=== PATIENT | male | born 1960 | race Two or more races ===

== ENCOUNTER 2017-09-26 14:54 | Emergency (ER) | payer SELFPAY | END 2017-09-26 17:50 | disposition other institution (70) | LOC: D.ER 14:54 | DX: S06.5X9A Traumatic subdural hemorrhage with loss of consciousness of unspecified duration, initial encounter (principal); X58.XXXA Exposure to other specified factors, initial encounter; Y93.89 Activity, other specified; Y92.019 Unspecified place in single-family (private) house as the place of occurrence of the external cause; G40.909 Epilepsy, unspecified, not intractable, without status epilepticus; I10 Essential (primary) hypertension ==

== ENCOUNTER 2020-03-01 17:05 | Inpatient (IN) | payer OTHER ==
[~2020-03-01] VITALS: Ht 165.1 cm; Wt 50.5 kg
[~2020-03-01 17:05] MED LIST: CHLORASEPTIC S180 ML MM; DUONEB 2.5-0.5 M3 ML UPD; MAG-OXIDE400 MG PO; NORCO 5/325 TAB1 TA1 PO; SYNTHROID75 MCG PO; TYLENOL 325 MG325 MG PO; TYLENOL650 MG RC; ZITHROMAX250 MG PO
[2020-03-01 17:31] LABS: HEMATOCRIT 32.1 % (42.0-54.0); HEMOGLOBIN 11.1 g/dL (13.5-17.5); MCH 33.9 pg (26.0-34.0); MCHC 34.6 g/dL (31.0-37.0); MCV 98.2 fL (80.0-100.0); MEAN PLATELET VOLUME 9.8 fL (7.4-10.4); PLATELET COUNT 83 10x3/uL (130-400); RBC 3.27 10x6/uL (4.20-6.10); RDW 16.2 % (11.5-14.5); WBC 4.4 10x3/uL (4.8-10.8)
[2020-03-01 17:40] LABS: APTT 30.1 SECONDS (22.8-39.4); INR 1.16 (0.85-1.17); PROTIME 14.8 SECONDS (11.6-15.0)
[2020-03-01 17:41] LABS: CALC OSMOLALITY 276 mosm/kg (275-300); CALCIUM 8.8 mg/dL (8.5-10.1); CARBON DIOXIDE 25.6 mmol/L (21.0-32.0); CHLORIDE - SERUM 103 mmol/L (98-107); CREATININE - SERUM 0.8 mg/dL (0.6-1.3); GLUCOSE 108 mg/dL (74-106); POTASSIUM - SERUM 3.4 mmol/L (3.5-5.1); SODIUM 140 mmol/L (136-145); UREA NITROGEN 4 mg/dL (7-18); eGFR NON AFRICAN AMERICAN > 90 mL/min (90-120)
[2020-03-01 17:53] LABS: ALBUMIN 3.8 g/dL (3.4-5.0); ALKALINE PHOSPHATASE 75 U/L (30-120); ALT (SGPT) 63 U/L (10-68); BILIRUBIN - TOTAL 0.86 mg/dL (0.2-1.3); PROTEIN - SERUM 7.9 g/dL (6.4-8.2)
[2020-03-01 18:14] LABS: EOSINOPHILS 3 % (0-7); LYMPHOCYTES 72 % (15-50); MONOCYTES 1 % (2-11); NEUTROPHILS 24 % (40-80); PLATELET ESTIMATE DECREASED
[2020-03-01 18:17] LABS: BILIRUBIN NEGATIVE (NEGATIVE); GLUCOSE NEGATIVE (NEGATIVE); KETONE NEGATIVE (NEGATIVE); NITRITE NEGATIVE (NEGATIVE); UROBILINOGEN NORMAL (NORMAL)
--- NOTE | 2020-03-01 18:17 | NUR ---
NV TRAUMA BAND NUMBER [id number]
--- NOTE | 2020-03-01 18:50 | NUR ---
REPORT GIVEN TO FLOOR NURSE ICU PER MIMA NOONAN.
[2020-03-01 19:00] VITALS: BP 109/62
--- NOTE | 2020-03-01 19:37 | NUR ---
recieved in report that dr yu is aware of consult and heber is in ER with patient
--- NOTE | 2020-03-01 19:41 | NUR ---
called ER that room is ready
[2020-03-01 20:00] VITALS: BP 91/51
[2020-03-01 21:00] VITALS: BP 100/87
[2020-03-01 21:33] VITALS: BP 125/87; BMI 23.3
[2020-03-01 22:00] VITALS: BP 107/68
[2020-03-01 23:00] VITALS: BP 94/53
[2020-03-02] VITALS (15 sets, daily range): BP systolic 94–132; BP diastolic 54–87; Ht 165.1 cm; Wt 50.5 kg
[2020-03-02 01:07] LABS: UDS - AMPHET NEGATIVE QUAL (NEGATIVE); UDS - BARB NEGATIVE QUAL (NEGATIVE); UDS - BENZO NEGATIVE QUAL (NEGATIVE); UDS - COCAINE NEGATIVE QUAL (NEGATIVE); UDS - OPIATE NEGATIVE QUAL (NEGATIVE); UDS - PCP NEGATIVE QUAL (NEGATIVE); UDS - THC NEGATIVE QUAL (NEGATIVE)
[2020-03-02 04:15] LABS: HEMATOCRIT 36.5 % (42.0-54.0); HEMOGLOBIN 12.6 g/dL (13.5-17.5); MCH 33.8 pg (26.0-34.0); MCHC 34.5 g/dL (31.0-37.0); MCV 97.9 fL (80.0-100.0); PLATELET COUNT 83 10x3/uL (130-400); RBC 3.73 10x6/uL (4.20-6.10); RDW 16.2 % (11.5-14.5)
--- NOTE | 2020-03-02 04:34 | NUR ---
patient requesting to drink fluids.. educated on npo.
[2020-03-02 04:40] LABS: ALBUMIN 3.9 g/dL (3.4-5.0); ALKALINE PHOSPHATASE 74 U/L (30-120); ALT (SGPT) 67 U/L (10-68); CALC OSMOLALITY 285 mosm/kg (275-300); CALCIUM 8.1 mg/dL (8.5-10.1); CARBON DIOXIDE 29.3 mmol/L (21.0-32.0); CHLORIDE - SERUM 105 mmol/L (98-107); CKMB 0.3 U/L (0.0-3.6); CREATINE KINASE 101 UL (21-232); CREATININE - SERUM 0.8 mg/dL (0.6-1.3); GLUCOSE 135 mg/dL (74-106); MAGNESIUM - SERUM 1.1 mg/dL (1.8-2.4); POTASSIUM - SERUM 3.4 mmol/L (3.5-5.1); PROTEIN - SERUM 8.3 g/dL (6.4-8.2); SODIUM 144 mmol/L (136-145); UREA NITROGEN 4 mg/dL (7-18); eGFR NON AFRICAN AMERICAN > 90 mL/min (90-120)
[2020-03-02 04:42] LABS: TROPONIN-I < 0.017 ng/mL (0.000-0.060)
[2020-03-02 05:12] LABS: LYMPHOCYTES 30 % (15-50); NEUTROPHILS 70 % (40-80); PLATELET ESTIMATE DECREASED; PLATELET MORPHOLOGY GIANT PLTS PRESENT
--- NOTE | 2020-03-02 06:16 | NUR ---
paged dr marcelo
--- NOTE | 2020-03-02 07:00 | NUR ---
REPORT RECEIVED FROM OUTGOING RN. PATIENT IS ASSESSMENT COMPLETED. SEE FLOW SHEET. PATIENT SPEAKS VERY LITTLE TELUGU. RESIDENTIAL ADVISOR NOTIFIED FOR TRANSLATION PHONE. PATIENT ABLE TO EXPRESS HIS NEEDS. DENIES PAIN AT THIS TIME. VITAL SIGNS STABLE. CALL LIGHT IN REACH WE WILL CONTINUE PLAN OF CARE.
--- NOTE | 2020-03-02 08:00 | NUR ---
pATIENT INCONTINENT OF BOWEL. wHENEVER PATIENT WAS BEING CLEAN AND FULL BED BATH GIVEN. pATIENT AND WAS IN THAT SEPARATE POSTURE AND START A CONVULSION. aNOTHER NURSE STAYED IN THE ROOM WITH THE PATIENT AND WHILE i GOT aTIVAN. iT WAS ADMINISTERED. sEE mar. pATIENT HAD CONVULSIONS FOR ABOUT 1 MINUTE AND ENTERED A POSTICTAL STAGE. pATIENT AWAKE AND ALERT BUT VERY SLEEPY. pATIENT FOLLOWING COMMANDS SUCH SQUEEZING HANDS AND WIGGLE TOES. dR. ROWAN NOTIFIED. gIVE 1 G dILANTIN NOW AND STAT HEAD ct.
--- NOTE | 2020-03-02 08:56 | NUR ---
DR ROWAN IN THE UNIT AND ASSESSED PATIENT.
--- NOTE | 2020-03-02 09:00 | NUR ---
pER dR. ROWAN PLAN FOR RIGHT BUR HOLE tOMORROW.
--- NOTE | 2020-03-02 19:45 | NUR ---
PT RESTING IN BED ALERT BUT CONFUSED. VITALS STABLE. COMMUNICATION BARRIER. NO S/S OF DISTRESS AT THIS TIME. BED LOW CALL LIGHT WITHIN REACH. WILL CONTINUE OT MONITOR.
[2020-03-03] VITALS (15 sets, daily range): BP systolic 89–117; BP diastolic 56–71
--- NOTE | 2020-03-03 01:14 | NUR ---
PT VISABLY SHAKING AND ANXIOUS. PRN ATIVAN GIVEN. PT RESTING IN BED WITH EYES OPEN. VITALS STABLE AT THIS TIME. BED LOW, BED ALARM ON, CALL LIGHT WITHIN REACH. WILL CONTINUE TO MONITOR.
--- NOTE | 2020-03-03 01:21 | NUR ---
PT RESTING IN BED COMFORTABLY AT THIS TIME. RR EVEN AND UNLABORED. NO S/S OF DISTRESS. VITALS STABLE. PT NPO FOR PROCEDURE. BED ALARM TEMPORARY ADMINISTRATIVE ASSISTANT LIGHT WITHIN REACH. WILL CONTINUE TO MONITOR.
[2020-03-03 04:05] LABS: BASOPHILS 0 % (0-2); EOSINOPHILS 0 % (0-7); HEMATOCRIT 34.8 % (42.0-54.0); HEMOGLOBIN 11.8 g/dL (13.5-17.5); IMMATURE GRANULOCYTES 0.4 % (0-5); LYMPHOCYTES 11.6 % (15-50); MCH 33.4 pg (26.0-34.0); MCHC 33.9 g/dL (31.0-37.0); MCV 98.6 fL (80.0-100.0); MONOCYTES 10.5 % (2-11); NEUTROPHILS 77.5 % (40-80); RBC 3.53 10x6/uL (4.20-6.10)
[2020-03-03 04:12] LABS: PLATELET COUNT 66 10x3/uL (130-400); WBC 2.9 10x3/uL (4.8-10.8)
[2020-03-03 04:18] LABS: ALBUMIN 3.9 g/dL (3.4-5.0); ALKALINE PHOSPHATASE 70 U/L (30-120); ALT (SGPT) 72 U/L (10-68); BILIRUBIN - TOTAL 1.49 mg/dL (0.2-1.3); CALCIUM 8.1 mg/dL (8.5-10.1); CARBON DIOXIDE 32.4 mmol/L (21.0-32.0); CHLORIDE - SERUM 98 mmol/L (98-107); CREATININE - SERUM 0.8 mg/dL (0.6-1.3); GLUCOSE 138 mg/dL (74-106); PROTEIN - SERUM 8.1 g/dL (6.4-8.2); SODIUM 137 mmol/L (136-145); eGFR NON AFRICAN AMERICAN > 90 mL/min (90-120)
--- NOTE | 2020-03-03 04:45 | NUR ---
PT RESTING COMFORTABLY IN BED. RR EVEN AND UNLABORED AT THIS TIME. VITALS STABLE. NO S/S OF DISTRESS. BED LOW CALL LIGHT WITHIN REACH. WILL CONTINUE TO MONITOR.
[2020-03-03 04:58] LABS: CALC OSMOLALITY 274 mosm/kg (275-300); POTASSIUM - SERUM 2.9 mmol/L (3.5-5.1); UREA NITROGEN 10 mg/dL (7-18)
--- NOTE | 2020-03-03 07:10 | NUR ---
REPORT RECEIVED FROM OFF GOING NURSE. PATIENT LAYING IN BED ON BACK WITH EYES CLOSED AND BREATHING EVENLY. VSS. WILL CONTINUE WITH PLAN OF CARE. SR UP X 2 BED IN LOW POSITION AND CALL LIGHT IN REACH.
--- NOTE | 2020-03-03 08:30 | NUR ---
PATIENT IS STABLE AND VSS. PATIENT TO SURGERY VIA HOSPITAL BED ACCOMPANIED BY SURGERY STAFF.
[2020-03-03 10:12] LABS: HEPATITIS C ANTIBODY 0.2 S/CO RAT (0.0-0.9)
--- NOTE | 2020-03-03 10:30 | NUR ---
PATIENT RETURNED FROM SURGERY VIA HOSPITAL BED ACCOMPANIED BY HOSPITAL STAFF. PATIENT IS AWAKE AND DROWSY. INCISION TO RT SCALP WITH DRSG C/D/I WITH DRSG CAP ON HEAD. VSS. WILL CONTINUE TO MONITOR. [facility]ED IN LOW POSTION AND CALL LIGHT IN REACH.
--- NOTE | 2020-03-03 12:20 | NUR ---
ASSUMED CARE FROM PRIMARY CARE NURSE, MADISON. BILATERAL WRIST RESTRAINTS ON AND IN USE CORRECTLY. LAW CATH SEEN PATENT WITH AJ COLORED URNIE. LARGE BANDAID SEEN TO RIGHT SIDE FOREHEAD FROM SURGERY TODAY. DATED. ON 3L PER NC. SINHALA SPEAKING PATIENT, LITTLE KYRGYZ.
--- NOTE | 2020-03-03 13:38 | NUR ---
3RD BAG OF POTASSIUM INFUSING SLOWLY Y-SITED WITH NORMAL SALINE.
--- NOTE | 2020-03-03 14:48 | NUR ---
IV TO LEFT FA STARTING TO INFILTRATE. CATH TIP REMOVED WITH TIP INTACT. RE-SITED WITH 22G TO RIGHT AC AREA X 1 STICK.
--- NOTE | 2020-03-03 15:09 | NUR ---
RIGHT AC SITE IS TOLERATED IV POTASSIUM AND NORMAL SALINE WELL.
--- NOTE | 2020-03-03 15:41 | NUR ---
BILATRAL WRIST RESTRAINTS REMOVED AND UPPER ARMS EXERCISED. RESTRAINTS REPLACED.
--- NOTE | 2020-03-03 15:57 | NUR ---
4TH BAG OF POTASSIUM RIDER HUNG.
--- NOTE | 2020-03-03 17:59 | NUR ---
STILL WITH 4TH BAG OF POTASSIUM RIDER INFUSING AT 30-40 CC/HR, JUST INCREASED TO 40CC/HR PATIENT HAS NOT BEEN ABLE TO TOLERATE THE BURNING. THIS IS INFUSING WITH NS AT 50 CC/HR. DENIES ANY NEEDS.
--- NOTE | 2020-03-03 18:50 | NUR ---
5TH BAG OF POTASSIUM RIDER HUNG.
--- NOTE | 2020-03-03 20:01 | NUR ---
PT HAD CARLOS HOLE TODAY/DR. ROWAN. DRESSING TO RIGHT SIDE OF HEAD WITH SMALL DRAINAGE. HE IS ON ELECTROLITE PROTOCOL/5TH BAG. IT IS HANGING WITH NS. HE IS ON FULL LIQ DIET. F/C WITH AJ URINE. NC AT 3L. B/P 105/58 P 77 O2 100% IV IS IN RIGHT AC AND IS PATENT.
--- NOTE | 2020-03-03 21:15 | NUR ---
RECEIVED REPORT FROM TORRES COLLECTIONS OFFICER NURSE
--- NOTE | 2020-03-03 21:35 | NUR ---
PT RESTING WITH EYES CLOSED, RESP QUIET, NO DISTRESS NOTED, LEFT UNDISTURBED AT THIS TIME
--- NOTE | 2020-03-03 21:54 | NUR ---
PT RESTING WITH EYES CLOSED, AROUSES TO SOFT VERBAL STIMULATION, KCL HUNG PER MD ORDERS, SEE EMAR, PT DENIES NEEDS OR PAIN AT THIS TIME
--- NOTE | 2020-03-03 23:12 | NUR ---
ASSESSMENT PER FLOW SHEET, VS CONTINUE, IV IN RIGHT AC INTACT WITH NO REDNESS OR EDEMA INFUSING VIA PUMP NS AND KCL PER MD ORDERS, SEE EMAR, LAW CATH SECURED TO LEG WITH STATLOCK, INC TO RIGHT UPPER FOREHEAD WITH LARGE BANDAID CDI WITH NO DRAINAGE NOTED, PT C/O GONSALEZ, INFORMED PT THAT I WILL CHECK TO SEE WHAT IS ORDERED, SOFT WRIST RESTRAINTS IN PLACE
--- NOTE | 2020-03-03 23:28 | NUR ---
ADM TYLENOL PO PER MD ORDERS, SEE EMAR, WITH FRESH H20
[2020-03-04] VITALS (17 sets, daily range): BP systolic 87–143; BP diastolic 53–97
--- NOTE | 2020-03-04 00:26 | NUR ---
PT AWAKE, ADM DECADRON SIVP PER MD ORDERS, SEE EMAR
--- NOTE | 2020-03-04 01:40 | NUR ---
PT AWAKE, LAB IN ROOM, AFTER BLOOD DRAW, PT REQUESTS SOMETHING TO EAT, PT PROVIDED AND ASSISTED WITH SNACK AND FRESH H20, PT DENIES FURTHER NEEDS AT THIS TIME, SOFT RESTRAINTS IN PLACE
--- NOTE | 2020-03-04 03:15 | NUR ---
PT AWAKE, ASSESSMENT PER FLOW SHEET, VS CONTINUE, SOFT RESTRAINTS REMOVED AT THIS THIS, PINK CHUX CHANGED OUT DUE TO OTHER ONE UP BEHIND PT'S BACK, PT REPOSITIONED IN BED, SOFT RESTRAINTS REPLACED BACK ON, PT REPORTS "FEELING HUNGRY", PROVIDED AND ASSISTED WITH SNACK AND FRESH H20, PT NELIA WELL, DENIES FURTHER NEEDS OR PAIN
--- NOTE | 2020-03-04 04:29 | NUR ---
PT AWAKE, C/O HEAD PAIN, ADM TYLENOL PO PER MD ORDERS, SEE EMAR, I&O'S COLLECTED, LAB IN ROOM FOR AM BLOOD DRAW, PT DENIES FURTHER NEEDS
[2020-03-04 05:01] LABS: BASOPHILS 0 % (0-2); EOSINOPHILS 0 % (0-7); HEMATOCRIT 32.6 % (42.0-54.0); HEMOGLOBIN 11.3 g/dL (13.5-17.5); LYMPHOCYTES 24.6 % (15-50); MCH 33.6 pg (26.0-34.0); MCHC 34.7 g/dL (31.0-37.0); MEAN PLATELET VOLUME 10.4 fL (7.4-10.4); MONOCYTES 9.6 % (2-11); NEUTROPHILS 65.8 % (40-80); PLATELET COUNT 57 10x3/uL (130-400); RBC 3.36 10x6/uL (4.20-6.10); WBC 3.5 10x3/uL (4.8-10.8)
[2020-03-04 05:18] LABS: PLATELET ESTIMATE DECREASED
[2020-03-04 05:23] LABS: ALBUMIN 3.4 g/dL (3.4-5.0); ALKALINE PHOSPHATASE 63 U/L (30-120); BILIRUBIN - TOTAL 1.55 mg/dL (0.2-1.3); CALC OSMOLALITY 268 mosm/kg (275-300); CALCIUM 7.8 mg/dL (8.5-10.1); CARBON DIOXIDE 25.5 mmol/L (21.0-32.0); CHLORIDE - SERUM 97 mmol/L (98-107); CREATININE - SERUM 0.8 mg/dL (0.6-1.3); GLUCOSE 164 mg/dL (74-106); POTASSIUM - SERUM 3.2 mmol/L (3.5-5.1); PROTEIN - SERUM 7.1 g/dL (6.4-8.2); SODIUM 133 mmol/L (136-145); UREA NITROGEN 9 mg/dL (7-18); eGFR NON AFRICAN AMERICAN > 90 mL/min (90-120)
[2020-03-04 05:24] LABS: ALT (SGPT) 47 U/L (10-68); MAGNESIUM - SERUM 1.3 mg/dL (1.8-2.4)
--- NOTE | 2020-03-04 06:08 | NUR ---
PT AWAKE, ADM 0600 MEDS AND MEDS FOR ELECTROLYTE PROTOCOL PER MD ORDERS, SEE EMAR
--- NOTE | 2020-03-04 06:48 | NUR ---
ADM ANOTHER KDUR 20 MEQ FOR PT TO RECEIVE A TOTAL OF 40MEQ OF KCL
--- NOTE | 2020-03-04 07:10 | NUR ---
REPORT RECEIVED FROM OFF GOING NURSE AND PATIENT CARE ASSUMED. PATIENT LAYING IN BED ON BACK WITH EYES CLOSED AND BREATHING EVENLY. HOB ELEVATED 30 DEGREES. PATIENT IS STABLE AND VSS. WILL CONTINUE TO MONITOR. SR UP X 2 BED IN LOW POSITION AND CALL LIGHT IN REACH.
--- NOTE | 2020-03-04 09:15 | NUR ---
PATIENT COMPLAINS OF HEAD AND BACK PAIN AT A [address] CONTA[address] ROWAN. RECEIVED NEW ORDER.
--- NOTE | 2020-03-04 11:00 | NUR ---
PATIENT RESTING COMFORTABLY. PATIENT DENIES ANY NEEDS OR PAIN. PATIENT CONTINUES TO CALM AND ORIENTED. RE-ASSESMENT COMPLETED. WILL CONTINUE TO MONITOR.SR UP X 2 BED IN LOW POSITION AND CALL LIGHT INREACH.
[2020-03-04 11:56] LABS: POTASSIUM - SERUM 3.9 mmol/L (3.5-5.1); TROPONIN-I < 0.017 ng/mL (0.000-0.060)
--- NOTE | 2020-03-04 12:44 | NUR ---
Nutrition Follow-up: Nursing reports pt with good PO intake this AM. Rosangela keith yesterday. Diet: Full Liquid Wt: 140# (03/02) Labs noted: Na 133, K+ 3.2, Glu 164, Ca 7.8, Mg 1.3, Alb 3.4 Meds noted: Protonix, electrolyte protocol -Rec ADAT as medically feasible. -Monitor wt. -RD following.
--- NOTE | 2020-03-04 13:07 | NUR ---
PT IS STABLE. VSS. LAW CATHETER DISCONTINUED WITHOUT DIFFICULTY. ENCOURAGE PT TO DRINK FLUID. WILL CONTINUE TO MONITOR. SR UP X2 BED IN LOWEST POSITION. CALL LIGHT AT REACH.
--- NOTE | 2020-03-04 14:45 | NUR ---
PATIENT IS STABLE AND VSS. PATIENT IS ALERT AND ORIENTED X 4. PATIENT IS AIMEE AND COOPERATIVE. VSS. RE-ASSESMENT COMPLETED. GAVE PATIENT LARGE CUP OF WATER REQUESTED. PATIENT UNDERSTANDS HOW TO USE CALL LIGHT. SR UPX 2 BED IN LOW POSITION AND CALL LIGHT IN REAC.
--- NOTE | 2020-03-04 20:30 | NUR ---
RECEIVED TO FLOOR, ACCOMPANIED BY ICU STAFF. ACCOUNTING SYSTEMS MANAGER PHONE IN USE. VERBALIZED UNDERSTANDING OF USE OF CALL LIGHT AND URINAL. JESUS ALARM IN USE. A&O X 4. PT REPORTS CHEST PAIN. ICU NURSE STATES ATIVAN FOR ANXIETY HAS BEEN USED TO TREAT THIS. NO FURTHER NEEDS VOICED AT THIS TIME.
[2020-03-05] VITALS: BP 108/64
--- NOTE | 2020-03-05 03:45 | NUR ---
I have reviewed this patient and I concur with the Shift Assessment completed by the Licensed Practical Nurse today this shift.
[2020-03-05 04:00] VITALS: BP 109/65
[2020-03-05 06:19] LABS: HEMATOCRIT 32.9 % (42.0-54.0); HEMOGLOBIN 11.5 g/dL (13.5-17.5); IMMATURE GRANULOCYTES 0.3 % (0-5); MCH 33.8 pg (26.0-34.0); MCV 96.8 fL (80.0-100.0); MEAN PLATELET VOLUME 10.5 fL (7.4-10.4); PLATELET COUNT 53 10x3/uL (130-400); RDW 14.5 % (11.5-14.5); WBC 3.5 10x3/uL (4.8-10.8)
[2020-03-05 06:33] LABS: ALBUMIN 3.6 g/dL (3.4-5.0); ALKALINE PHOSPHATASE 62 U/L (30-120); ALT (SGPT) 44 U/L (10-68); BILIRUBIN - TOTAL 1.59 mg/dL (0.2-1.3); CALCIUM 8.2 mg/dL (8.5-10.1); CARBON DIOXIDE 27.4 mmol/L (21.0-32.0); CHLORIDE - SERUM 99 mmol/L (98-107); CREATININE - SERUM 0.7 mg/dL (0.6-1.3); MAGNESIUM - SERUM 1.2 mg/dL (1.8-2.4); POTASSIUM - SERUM 3.6 mmol/L (3.5-5.1); PROTEIN - SERUM 7.2 g/dL (6.4-8.2); SODIUM 134 mmol/L (136-145); UREA NITROGEN 7 mg/dL (7-18); eGFR NON AFRICAN AMERICAN > 90 mL/min (90-120)
[2020-03-05 06:36] LABS: CALC OSMOLALITY 266 mosm/kg (275-300); GLUCOSE 115 mg/dL (74-106)
[2020-03-05 06:53] LABS: LYMPHOCYTES 24 % (15-50); MONOCYTES 7 % (2-11); NEUTROPHILS 69 % (40-80); PLATELET ESTIMATE DECREASED
--- NOTE | 2020-03-05 07:40 | NUR ---
PATIENT SLEEPING. LUNGS CLEAR BILATERALLY. HEART SOUNDS S1 AND S2 HEARD IN ALL [place]. BOWEL SOUNDS ACTIVE X 4. IV TO LFA PATENT WITHOUT REDNESS. BED LOW. BED ALARM ON. CALL ALBERTO AND PERSONAL ITEMS IN REACH. WILL CONTINUE TO MONITOR.
--- NOTE | 2020-03-05 09:18 | NUR ---
ATTEMPTED TO GET PHONE NUMBER FOR EMERGENCY CONTACT OR ANY FAMILY FROM PATIENT. STATES TO CALL "[facility]" BUT DOES NOT HAVE PHONE NUMBER TO CALL. ATTEMPTED TO CALL UNKNOWN PHONE NUMBER FROM FACE SHEET BUT MESSAGE THAT PHONE NUMBER IS DISCONNECTED.
--- NOTE | 2020-03-05 11:11 | NUR ---
PATIENT ATTEMPTING TO CLIMB OUT OF CHAIR AND INTO BED. ASSITED FROM BED TO CHAIR.
--- NOTE | 2020-03-05 11:17 | NUR ---
SPOKE WITH DR ROWAN WHO STATES PATIENT MEDICALLY OK TO LEAVE FROM HIS STANDPOINT. PATIENT HAS NO FAMILY AND NO EMERGENCY CONTACT. STATES WILL SPEAK WITH CASE MANAGEMENT.
--- NOTE | 2020-03-05 15:42 | NUR ---
PATIENT SLEEPING. WILL CONTINUE TO MONITOR.
[2020-03-05 20:00] VITALS: BP 92/48
--- NOTE | 2020-03-05 20:50 | NUR ---
LYING IN BED. ALERT. LANGUAGE/COMMUNICATION BARRIER. PT SPEAKS HONDURAN BUT STAFF USED DRIVER ENGINEER VALENTIN. SPEAKS SOME DJIBOUTIAN. NO DISTRESS. RESP EVEN AND NONLABORED. BANDAID NOTED TO RT FOREHEAD. SALINE LOCK NOTED TO LT FOREARM. USES URINAL. JESUS ALARM ON FOR PT SAFETY. DENIES NEEDS. CL IN REACH.
--- NOTE | 2020-03-06 02:06 | NUR ---
HAS RESTED WELL TONIGHT. NO DISTRESS. CL IN REACH.
[2020-03-06 04:00] VITALS: BP 111/53
[2020-03-06 06:29] LABS: BASOPHILS 0 % (0-2); EOSINOPHILS 0.2 % (0-7); HEMATOCRIT 34.7 % (42.0-54.0); HEMOGLOBIN 12.2 g/dL (13.5-17.5); IMMATURE GRANULOCYTES 0.5 % (0-5); LYMPHOCYTES 36.7 % (15-50); MCHC 35.2 g/dL (31.0-37.0); MCV 96.7 fL (80.0-100.0); MEAN PLATELET VOLUME 11.5 fL (7.4-10.4); MONOCYTES 12.7 % (2-11); NEUTROPHILS 49.9 % (40-80); RBC 3.59 10x6/uL (4.20-6.10); RDW 14.4 % (11.5-14.5); WBC 4.1 10x3/uL (4.8-10.8)
[2020-03-06 06:30] LABS: PLATELET COUNT 61 10x3/uL (130-400)
[2020-03-06 06:46] LABS: ALBUMIN 3.7 g/dL (3.4-5.0); ALKALINE PHOSPHATASE 67 U/L (30-120); ALT (SGPT) 43 U/L (10-68); CALC OSMOLALITY 262 mosm/kg (275-300); CALCIUM 8.5 mg/dL (8.5-10.1); CARBON DIOXIDE 24.1 mmol/L (21.0-32.0); CHLORIDE - SERUM 98 mmol/L (98-107); CREATININE - SERUM 0.8 mg/dL (0.6-1.3); GLUCOSE 101 mg/dL (74-106); MAGNESIUM - SERUM 1.3 mg/dL (1.8-2.4); PROTEIN - SERUM 7.7 g/dL (6.4-8.2); SODIUM 132 mmol/L (136-145); UREA NITROGEN 7 mg/dL (7-18); eGFR NON AFRICAN AMERICAN > 90 mL/min (90-120)
[2020-03-06 06:49] LABS: POTASSIUM - SERUM 3.1 mmol/L (3.5-5.1)
--- NOTE | 2020-03-06 08:07 | NUR ---
HE IS AWAKE, RESTING. DENIES ANY PAIN. HE HAS A BANDAID TO THE RIGHT SIDE OF HIS FOREHEAD. THE CALL LIGHT IS WITHIN REACH AND THE BED ALARM IS ON.
[2020-03-06 09:38] VITALS: BP 92/50
[2020-03-06 12:59] VITALS: BP 112/64
--- NOTE | 2020-03-06 14:46 | NUR ---
22 G IV STARTED TO LAC, REMOVED THE IV TO THE RAC. ZOFRAN GIVEN.
[2020-03-06 15:50] VITALS: BP 110/60
--- NOTE | 2020-03-06 19:40 | NUR ---
LYING IN BED. ALERT. CONFUSED TO TIME, PLACE AND SITUATION. REQUESTS ICE CREAM. RESP EVEN AND NONLABORED. BANDAID NOTED TO RT FOREHEAD. USES URINAL. REPORTS HEADACHE. SALINE LOCK NOTED TO LT AC. JESUS ALARM ON FOR PT SAFETY. NO DISTRESS. CL IN REACH.
[2020-03-06 20:00] VITALS: BP 101/52
--- NOTE | 2020-03-06 20:20 | NUR ---
MEDICATED WITH TYLENOL FOR C/O H/A. CL IN REACH.
[2020-03-07] VITALS: BP 102/59
[2020-03-07 04:00] VITALS: BP 104/61
--- NOTE | 2020-03-07 04:10 | NUR ---
HAS RESTED WELL THIS SHIFT. NO DISTRESS. CL IN REACH. JESUS ON.
[2020-03-07 05:12] LABS: BASOPHILS 0 % (0-2); EOSINOPHILS 0 % (0-7); HEMATOCRIT 33.3 % (42.0-54.0); IMMATURE GRANULOCYTES 0.8 % (0-5); LYMPHOCYTES 15.1 % (15-50); MCH 34.9 pg (26.0-34.0); MCV 96.8 fL (80.0-100.0); MEAN PLATELET VOLUME 10.1 fL (7.4-10.4); MONOCYTES 13.5 % (2-11); NEUTROPHILS 70.6 % (40-80); PLATELET COUNT 67 10x3/uL (130-400); RBC 3.44 10x6/uL (4.20-6.10); RDW 14.6 % (11.5-14.5); WBC 3.6 10x3/uL (4.8-10.8)
[2020-03-07 05:16] LABS: PLATELET ESTIMATE DECREASED
[2020-03-07 05:27] LABS: ALBUMIN 3.6 g/dL (3.4-5.0); ALKALINE PHOSPHATASE 71 U/L (30-120); ALT (SGPT) 42 U/L (10-68); BILIRUBIN - TOTAL 0.99 mg/dL (0.2-1.3); CALCIUM 8.8 mg/dL (8.5-10.1); CARBON DIOXIDE 26.7 mmol/L (21.0-32.0); CHLORIDE - SERUM 99 mmol/L (98-107); CREATININE - SERUM 0.8 mg/dL (0.6-1.3); PROTEIN - SERUM 7.6 g/dL (6.4-8.2); SODIUM 136 mmol/L (136-145); UREA NITROGEN 6 mg/dL (7-18); eGFR NON AFRICAN AMERICAN > 90 mL/min (90-120)
[2020-03-07 05:33] LABS: CALC OSMOLALITY 272 mosm/kg (275-300); GLUCOSE 161 mg/dL (74-106)
[2020-03-07 08:00] VITALS: BP 111/61
--- NOTE | 2020-03-07 08:34 | NUR ---
HE IS SETTING UP EATING BREAKFAST. HE HAS A BANDAID TO THE RIGHT FOREHEAD. THE CALL LIHGT IS WITHIN REACH AND THE BED ALARM IS ON.
[2020-03-07 11:00] VITALS: BP 112/56
--- NOTE | 2020-03-07 13:07 | NUR ---
NEW IV, 22 G TO THE RFA. RAC IV REMOVED, CATH TIP INTACT. THE CALL LIGHT IS WITHIN REACH.
--- NOTE | 2020-03-07 13:42 | NUR ---
Nutrition follow-up: Pt remained full liquids from last week. Chart reviewed; DC planning PO intake of full liquids 100% of most meals Labs reviewed RDN changed diet order to consistent CHO for dinner tonight RDN following.
[2020-03-07 16:40] VITALS: BP 116/48
[2020-03-07 20:00] VITALS: BP 108/60
--- NOTE | 2020-03-07 20:30 | NUR ---
PT ASKED FOR ICE CREAM AND PAIN MEDICATION, ADMINISTERED PRN WITH PT PM MEDS, PT IS SHAKING BADLY STILL, NO NEEDS VOICED, BANDAGE TO RT FORHEAD, CL IN REACH CONTINUE WITH PLAN OF CARE
--- NOTE | 2020-03-08 00:42 | NUR ---
I have reviewed this patient and I concur with the Shift Assessment completed by the Licensed Practical Nurse today this shift.
[2020-03-08 04:00] VITALS: BP 113/71
[2020-03-08 05:41] LABS: BASOPHILS 0 % (0-2); EOSINOPHILS 0 % (0-7); HEMATOCRIT 32.7 % (42.0-54.0); HEMOGLOBIN 11.4 g/dL (13.5-17.5); IMMATURE GRANULOCYTES 0.7 % (0-5); LYMPHOCYTES 12.3 % (15-50); MCH 34.2 pg (26.0-34.0); MCHC 34.9 g/dL (31.0-37.0); MCV 98.2 fL (80.0-100.0); MEAN PLATELET VOLUME 9.9 fL (7.4-10.4); MONOCYTES 15.1 % (2-11); NEUTROPHILS 71.9 % (40-80); PLATELET COUNT 78 10x3/uL (130-400); RBC 3.33 10x6/uL (4.20-6.10); WBC 4.4 10x3/uL (4.8-10.8)
[2020-03-08 06:31] LABS: ALBUMIN 3.6 g/dL (3.4-5.0); ALKALINE PHOSPHATASE 65 U/L (30-120); ALT (SGPT) 46 U/L (10-68); BILIRUBIN - TOTAL 0.91 mg/dL (0.2-1.3); CALC OSMOLALITY 265 mosm/kg (275-300); CALCIUM 8.9 mg/dL (8.5-10.1); CARBON DIOXIDE 23.2 mmol/L (21.0-32.0); CHLORIDE - SERUM 96 mmol/L (98-107); CREATININE - SERUM 0.8 mg/dL (0.6-1.3); GLUCOSE 153 mg/dL (74-106); POTASSIUM - SERUM 3.4 mmol/L (3.5-5.1); PROTEIN - SERUM 7.6 g/dL (6.4-8.2); SODIUM 132 mmol/L (136-145); UREA NITROGEN 6 mg/dL (7-18); eGFR NON AFRICAN AMERICAN > 90 mL/min (90-120)
--- NOTE | 2020-03-08 07:20 | NUR ---
DID WALKING ROUNDS, PT LAYING IN BED ON LEFT SIDE, PT IS KHMER SPEAKING, TRANSLATER PHONE AT BEDSIDE, IV SALINE LOCKED TO LEFT FOREARM, SITE CLEAR, DRESSING TO RIGHT SIDE OF HEAD DRY AND INTACT, NO DRAINAGE NOTED, PT DENIES PAIN OR NEEDS AT THIS TIME, SR UP X2, CALL LIGHT IN REACH, BED LOW AND LOCKED, WILL CONTINUE TO MONITOR
--- NOTE | 2020-03-08 09:08 | NUR ---
GAVE PT SCHEDULED MEDS WITHOUT DIFFICULTY, PT DENIES PAIN OR NEEDS AT THIS TIME, WILL CONTINUE TO MONITOR
[2020-03-08 09:15] VITALS: BP 106/63
[2020-03-08 09:20] LABS: MAGNESIUM - SERUM 1.3 mg/dL (1.8-2.4); PHOSPHOROUS 3.6 mg/dL (2.5-4.9)
--- NOTE | 2020-03-08 09:30 | NUR ---
GAVE PT MAGNESIUM 400MG PO PRN FOR MAG OF 1.3, PT WILL GET THREE MORE SCHEDULED DOSES THEN AM LAB
[2020-03-08] MEDS ORDERED: PROTONIX40 MG PO (11:20)
[2020-03-08] MEDS ORDERED: MEDROL DOSE PACK4 MG PO (11:21)
[2020-03-08] MEDS ORDERED: K-DUR20 MEQ PO (11:21)
--- NOTE | 2020-03-08 11:58 | NUR ---
GAVE PT MEDS, IV PATENT, SITE CLEAR, PT DENIES ANY OTHER NEEDS AT THIS TIME, CALLL LIGHT IN REACH, WILL CONTINUE TO MONITOT
--- NOTE | 2020-03-08 12:38 | MORECARE ---
CASE MANAGEMENT DISCHARGE SUMMARY PATIENT: KAM JANG UNIT: [id number] ADM DATE: 03/01/20 AGE: 55 : [birth year] SEX: M ROOM/BED: D.2211 AUTHOR: AN CASIANO PHYSICIAN: REFERRING PHYSICIAN: ROB CALDWELL MD DATE OF SERVICE: 03/08/20 Discharge Plan Patient Name: KMA JANG Facility: [facility]:[place] : 12/21/1964 Planned Disposition: Inpatient Rehab Anticipated Discharge Date: Discharge Date: Expected LOS: Initial Reviewer: [email or web address] Initial Review Date: 03/01/2020 Generated: 03/08/20 1:38 pm DCPIA - Discharge Planning Initial Assessment Updated by [email or web address]: Tammie Rucker on 03/08/20 12:38 pm * ADLs Independent * List name and contact numbers for known caregivers / representatives who currently or will assist patient after discharge: YOSEF ( NEPHEW) External Providers External Provider: [facility] Contact Date: Service Request Date: Service Type: Resolution: Reviewer: Comments: Patient Name: KAM JANG Page [phone] at 1238 All edits/amendments must be made on the electronic document DICTATION DATE: 03/08/20 1238 PURCHASING INTERNSHIP: HERBERT 03/08/20 1238 RPT#: [id number] DC DATE: STATUS: ADM IN [place] [address] [place] [address] END OF REPORT
--- NOTE | 2020-03-08 12:46 | MORECARE ---
CASE MANAGEMENT DISCHARGE SUMMARY PATIENT: AKM JANG UNIT: [id number] ADM DATE: 03/01/20 AGE: 55 : [birth year] SEX: M ROOM/BED: D.2211 AUTHOR: AN CASIANO PHYSICIAN: REFERRING PHYSICIAN: ROB CALDWELL MD DATE OF SERVICE: 03/08/20 Discharge Plan Patient Name: KAM JANG Facility: [facility]:[place] : 12/21/1964 Planned Disposition: Inpatient Rehab Anticipated Discharge Date: Discharge Date: Expected LOS: Initial Reviewer: [email or web address] Initial Review Date: 03/01/2020 Generated: 03/08/20 1:46 pm Comments DCP- Discharge Planning Updated by [email or web address]: Tammie Rucker on 03/08/20 11:[address] PATIENT WAS ADMITTED AFTER FALLING FROM A TREE. I USED THE LANGUAGE LINE TO HELP ME WITH MY ASSESSMENT. PATIENT STATED THAT HE LIVES IN A SMALL HOUSE [place] WITH HIS , DAUGHTER,BROTHERS AND DAUGHTER IN LAW. HIS NEPHEW IS YOSEF AND HE WANTS US TO GET INTOUCH WITH HIM, BUT NO ONE KNOWS HIS NUMBER AND THE PATIENT COULD NOT TELL ME. HE TALKED ABOUT BEING AT ANOTHER HOSPITAL? I AM UNSURE IF THIS IS TRUE. I HAVE SENT A REFERRAL TO [facility]. I WILL ATTEMPT TO GET A HOLD OF YOSEF. CM RICK CONTINUE TO FOLLOW ADN ASSIST THE ACADEMIC MANAGER THAT I SPOKE WITH WAS ALFREDITO DCPIA - Discharge Planning Initial Assessment Updated by [email or web address]: Tammie Rucker on 03/08/20 12:38 pm * ADLs Independent * List name and contact numbers for known caregivers / representatives who currently or will assist patient after discharge: YOSEF ( NEPHEW) Last DP export: 03/08/20 11:38 a Patient Name: KAM JANG Page [phone] at 1246 All edits/amendments must be made on the electronic document DICTATION DATE: 03/08/20 1246 TEST DESK TROUBLE LOCATOR: HERBERT 03/08/20 1246 RPT#: [id number] DC DATE: STATUS: ADM IN [facility] [address] [place] [address] END OF REPORT
[2020-03-08 13:03] VITALS: BP 96/54
--- NOTE | 2020-03-08 13:33 | NUR ---
GAVE PT SECOND DOSE OF MAG PER PROTOCOL, NO OTHER NEEDS VOICED, CALL LIGHT IN REACH, BED LOW AND LOCKED, SR UP X2, WILL CONTINUE TO MONITOR
--- NOTE | 2020-03-08 14:56 | NUR ---
GAVE PT NORCO FOR PAIN, RATES PAIN 5/10 IN ABDOMEN
--- NOTE | 2020-03-08 15:40 | NUR ---
OT NOTE: PT COMPLETED SUPINE TO SIT WITH SBA. PT COMPLETED EOB SITTING BALANCE WITH SBA. PT COMPLETED SHARMILA/DOFF SOCKS WITH SBA. PT COMPLETED FACE HYGIENE WITH SETUP. [id number] THANK YOU,BUTCH TUBBS
[2020-03-08 16:55] VITALS: BP 102/54
--- NOTE | 2020-03-08 18:34 | NUR ---
STARTED NEW 22 GAUGE IV TO LEFT HAND, PT TOLERATED WELL
--- NOTE | 2020-03-08 19:30 | NUR ---
PT SITTING UP IN BED STATED HEAD IS HURTING AND REQUESTED PRN PAIN MEDICATION, ADVISED PT I WILL BRING MEDS WITH SCHEDULED PM MEDS, NO OTHER NEEDS AT THIS TIME. CONTINUE WITH PLAN OF CARE
[2020-03-08 19:49] VITALS: BP 106/52
[2020-03-09] VITALS: BP 104/55
--- NOTE | 2020-03-09 03:59 | NUR ---
I have reviewed this patient and I concur with the Shift Assessment completed by the Licensed Practical Nurse today this shift.
[2020-03-09 04:00] VITALS: BP 116/61
[2020-03-09 04:58] LABS: BASOPHILS 0 % (0-2); EOSINOPHILS 0 % (0-7); HEMATOCRIT 31.2 % (42.0-54.0); IMMATURE GRANULOCYTES 1.3 % (0-5); LYMPHOCYTES 20.5 % (15-50); MCH 34.9 pg (26.0-34.0); MCHC 35.3 g/dL (31.0-37.0); MEAN PLATELET VOLUME 9.9 fL (7.4-10.4); MONOCYTES 18.8 % (2-11); NEUTROPHILS 59.4 % (40-80); PLATELET COUNT 92 10x3/uL (130-400); RBC 3.15 10x6/uL (4.20-6.10); RDW 15.4 % (11.5-14.5); WBC 4.8 10x3/uL (4.8-10.8)
[2020-03-09 05:12] LABS: PLATELET ESTIMATE DECREASED
[2020-03-09 05:18] LABS: ALBUMIN 3.4 g/dL (3.4-5.0); ALKALINE PHOSPHATASE 65 U/L (30-120); ALT (SGPT) 49 U/L (10-68); CALC OSMOLALITY 267 mosm/kg (275-300); CALCIUM 8.6 mg/dL (8.5-10.1); CARBON DIOXIDE 27.5 mmol/L (21.0-32.0); CHLORIDE - SERUM 97 mmol/L (98-107); CREATININE - SERUM 0.9 mg/dL (0.6-1.3); GLUCOSE 116 mg/dL (74-106); MAGNESIUM - SERUM 1.4 mg/dL (1.8-2.4); PHOSPHOROUS 3.5 mg/dL (2.5-4.9); POTASSIUM - SERUM 3.2 mmol/L (3.5-5.1); SODIUM 134 mmol/L (136-145); eGFR NON AFRICAN AMERICAN > 90 mL/min (90-120)
[2020-03-09 05:29] LABS: UREA NITROGEN 11 mg/dL (7-18)
--- NOTE | 2020-03-09 06:37 | NUR ---
PT K+ AND MAGNESIUM LOW THIS MORNING, TREATED WITH EP, REDRAW PLACED FOR 10 FOR K+, PT LYING IN BED NO S/SX OF DISTRESS, CL IN REACH, CONTINUE WITH PLAN OF CARE
[2020-03-09 08:45] VITALS: BP 122/66
--- NOTE | 2020-03-09 10:35 | NUR ---
RESTING IN BED, NO DISTRESS NOTED, DRESSING TO RIGHT SIDE OF HEAD, CLEAN AND DRY, SL IN PLACE, CONT TO MONITOR LABS
[2020-03-09 13:06] VITALS: BP 119/68
--- NOTE | 2020-03-09 13:20 | NUR ---
Nutrition follow-up: Diet: ADA consistent CHO PO intake 100% of most meals Labs reviewed Wt:115# PO intake good and pt tolerated diet advancement. RDN following.
--- NOTE | 2020-03-09 14:24 | NUR ---
OT NOTE: PT DID NOT DO WELL YESTERDAY.. GAIT MUCH MORE UNSTEADY THAN PREVIOUS DAY. AMB IN ROOM WITH CGA/MIN ASSIST WITH 1 EPISODE OF LOB; AMB INTO HALLWAY FOR ENDURANCE AND BALANCE TRAINING, HOWEVER, PT VEARING OFF TO R SIDE WHILE WALKING. UNSTEADY TODAY. ABLE TO PERFORM UE AND LE DRESSING WITH SET UP WHILE SITTING IN CHAIR; UNSTEADY TRANSFER FROM BED TO CHAIR TO BED. SHREE OLSEN, OTR/L [phone]
[2020-03-09 16:33] VITALS: BP 112/66
[2020-03-09 20:00] VITALS: BP 110/59
[2020-03-10] VITALS (8 sets, daily range): BP systolic 92–169; BP diastolic 48–92
--- NOTE | 2020-03-10 04:55 | NUR ---
I have reviewed this patient and I concur with the Shift Assessment completed by the Licensed Practical Nurse today this shift.
[2020-03-10 05:50] LABS: BASOPHILS 0 % (0-2); EOSINOPHILS 0.2 % (0-7); HEMATOCRIT 32.3 % (42.0-54.0); IMMATURE GRANULOCYTES 1.1 % (0-5); LYMPHOCYTES 21.2 % (15-50); MCH 34.3 pg (26.0-34.0); MCHC 34.1 g/dL (31.0-37.0); MCV 100.6 fL (80.0-100.0); MEAN PLATELET VOLUME 9.5 fL (7.4-10.4); MONOCYTES 17.5 % (2-11); RBC 3.21 10x6/uL (4.20-6.10); WBC 5.3 10x3/uL (4.8-10.8)
[2020-03-10 06:07] LABS: PLATELET COUNT 113 10x3/uL (130-400)
[2020-03-10 06:31] LABS: ALBUMIN 3.4 g/dL (3.4-5.0); ALKALINE PHOSPHATASE 57 U/L (30-120); ALT (SGPT) 52 U/L (10-68); BILIRUBIN - TOTAL 0.74 mg/dL (0.2-1.3); CALC OSMOLALITY 266 mosm/kg (275-300); CALCIUM 8.8 mg/dL (8.5-10.1); CARBON DIOXIDE 26.6 mmol/L (21.0-32.0); CHLORIDE - SERUM 99 mmol/L (98-107); CREATININE - SERUM 0.9 mg/dL (0.6-1.3); GLUCOSE 113 mg/dL (74-106); POTASSIUM - SERUM 3.5 mmol/L (3.5-5.1); PROTEIN - SERUM 7.1 g/dL (6.4-8.2); SODIUM 133 mmol/L (136-145); UREA NITROGEN 13 mg/dL (7-18); eGFR NON AFRICAN AMERICAN > 90 mL/min (90-120)
--- NOTE | 2020-03-10 07:35 | NUR ---
PT RESTING IN BED WITH EYES OPEN. RESPIRATIONS ARE EVEN AND UNLABORED. BLASTER HELPER PHONE AT BEDSIDE. PT ABLE TO COMMUNICATE WITH BROKEN KHMER. PT DENIES PRESENCE OF PAIN/N/V AT THIS TIME. DRESSING NOTED TO RIGHT FOREHEAD. ABRASION NOTE TO RIGHT CHEEK. GENERALIZED BRUISING NOTED OVER BODY. BED IS IN THE LOWEST POSITION. CALL LIGHT AND BEDSIDE TABLE ARE WITHIN REACH. SIDE RAILS X 2. PT DENIES FURTHER NEEDS. WILL CONT TO MONITOR.
--- NOTE | 2020-03-10 12:17 | NUR ---
OT NOTE: INDEP WITH BED MOB; AMB FROM BED TO SINK TO PERFORM GROOMING TASKS AT SINK.. STATIC STANDING BALANCE IS GOOD, HOWEVER, PT CONTINUES TO BE UNSTEADY WITHOUT UE SUPPORT DURING AMBULATION FOR LONG DISTANCES. PTS ENDURANCE IS GOOD, BUT BALANCE IS FAIR-..HE IS ABLE TO WASH FACE AND HANDS WITH CLOTH, SHARMILA SHIRT WITH SET UP; SHARMILA SHOES WITH SET UP.. UNSURE OF COGNITIVE STATUS FOR ADVANCED ADLS DUE TO LANGUAGE BARRIER. SHREE OLSEN, OTR/L [phone]
--- NOTE | 2020-03-10 12:56 | NUR ---
(2) BED BUGS FOUND CRAWLING ON PT BEDSHEETS. ALL PERSONAL BELONGINGS DOUBLE BAGGED AND HOME HEALTH TRAVEL OT PHONE USED FOR COMMUNICATION. PT EDUCATED ON IMPORTANCE OF STAYING IN ROOM AND CONTACT ISOLATION PRECAUTIONS IMPLEMENTED. WILL BATHE PT AND DO COMPLETE LINEN CHANGE. WILL MOVE PT ROOM WHEN COMPLETE. PT REPORTS CHEST PAIN A SUDDEN CHEST PAIN THAT HAS SUBSIDED AND DENIES NEEDS. PT DENIES CURRENT CHEST PAIN. NO APPARENT S/S OF DISTRESS NOTED. CONTACT ISOLATION PLACED. BED IS IN THE LOWEST POSITION. CALL LIGHT AND BEDSIDE TABLE ARE WITHIN REACH. SIDE RAILS X 2. PT DENIES FURTHER NEEDS. WILL CONT TO MONITOR.
--- NOTE | 2020-03-10 13:19 | NUR ---
PT REPORTS ANOTHER EPISODE OF CHEST PAIN AND IS NAUSEATED. DR PRADO ON FLOOR AND NOTIFIED OF PT STATE. VERBAL ORDERS RECD FOR STAT EKG CARDIAC ENZYMES CHEST XRAY AND ABG. ORDERS PLACED. EKG COMPLETED AND RESULTS GIVEN TO DR PRADO. NO FURTHER ORDERS RECD AT THIS TIME.
--- NOTE | 2020-03-10 13:21 | NUR ---
RESPIRATORY AND XRAY NOTIFIED OF STAT ORDERS FOR PT.
--- NOTE | 2020-03-10 14:13 | NUR ---
CRITICAL D DIMER RECD FROM LAB. JOSÉ MIGUEL TODD E BUSINESS SPECIALIST NOTIFIED. NO NEW ORDERS RECD.
[2020-03-10 14:14] LABS: CKMB 0.3 U/L (0.0-3.6); CREATINE KINASE 76 UL (21-232); TROPONIN-I < 0.017 ng/mL (0.000-0.060)
--- NOTE | 2020-03-10 14:40 | NUR ---
Rehab Note- Acute Inpatient Rehab prescreen order received. The patient has [employer] insurance and will require a PreAuth. Will submit for a PreAuth at this time. Spoke with VANGIE Lopes. Thank you for this referral! Vanessa Robertson RN Clinical Liaison, [facility] Rehab
--- NOTE | 2020-03-10 15:23 | NUR ---
Rehab Note- Carmenza initiated, spoke w/ Nemo w/ Amos/Erickr that clarified his being 12/21/1961 not 12/21/1964. left for Rosamaria in Business office on clarification. Clinicals faxed in at this time for review for possible inpatient acute rehab stay, pending reference #[id number]. Will follow at this time and await a determination. Thank you for this referral! Vanessa Robertson RN Clinical Liaison, [facility] Rehab
--- NOTE | 2020-03-10 15:50 | NUR ---
REPORT CALLED TO JACOB SUPERVISOR [employer]
--- NOTE | 2020-03-10 17:47 | NUR ---
PT RECEIVED TO 2301. ON CONTACT PRECAUTIONS. LANGUAGE BARRIER.
--- NOTE | 2020-03-10 20:14 | NUR ---
pT. RESTING IN BED WITH EYES OPEN. NO COMPLAINTS AT THIS TIME. WILL CONTINUE TO MONITOR
[2020-03-10 20:28] LABS: CKMB 0.2 U/L (0.0-3.6); CREATINE KINASE 70 UL (21-232)
[2020-03-10 20:34] LABS: TROPONIN-I < 0.017 ng/mL (0.000-0.060)
--- NOTE | 2020-03-10 22:07 | NUR ---
PT. AWAKE, ACCEPTS MEDICATION. WILL CONT. TO MONITOR
--- NOTE | 2020-03-10 23:40 | NUR ---
PT RESTING IN BED WITH EYES CLOSED. NO CHANGES
[2020-03-11] VITALS (24 sets, daily range): BP systolic 87–159; BP diastolic 55–90
--- NOTE | 2020-03-11 01:48 | NUR ---
No changes noted
--- NOTE | 2020-03-11 02:13 | NUR ---
PATIENT HAD SEIZURE AND IS POSTICTAL. ONLY RESPONDS TO STERNAL RUB BY OPENING EYES. WILL NOT ANSWER QUESTIONS AND HAS SNORING RESPIRATIONS. O2 APPLIED AT 2L/MIN. DR. ROWAN NOTIFIED AND NEW ORDER RECEIVED.
--- NOTE | 2020-03-11 02:55 | NUR ---
Pt. noted to have second seizure. New orders placed and Dilantbeing run over 45min. per order. Will continue to monitor
[2020-03-11 04:01] LABS: BASOPHILS 0 % (0-2); EOSINOPHILS 0 % (0-7); HEMATOCRIT 34.3 % (42.0-54.0); HEMOGLOBIN 11.5 g/dL (13.5-17.5); IMMATURE GRANULOCYTES 3.4 % (0-5); MCH 34.8 pg (26.0-34.0); MCHC 33.5 g/dL (31.0-37.0); MEAN PLATELET VOLUME 9.6 fL (7.4-10.4); MONOCYTES 11.4 % (2-11); NEUTROPHILS 71.2 % (40-80); RDW 15.2 % (11.5-14.5)
[2020-03-11 04:02] LABS: MCV 103.9 fL (80.0-100.0); PLATELET COUNT 154 10x3/uL (130-400); WBC 6.8 10x3/uL (4.8-10.8)
[2020-03-11 04:06] LABS: ALBUMIN 3.5 g/dL (3.4-5.0); ALKALINE PHOSPHATASE 56 U/L (30-120); ALT (SGPT) 50 U/L (10-68); BILIRUBIN - TOTAL 0.71 mg/dL (0.2-1.3); CALC OSMOLALITY 275 mosm/kg (275-300); CALCIUM 8.2 mg/dL (8.5-10.1); CHLORIDE - SERUM 100 mmol/L (98-107); CKMB 0.1 U/L (0.0-3.6); CREATINE KINASE 82 UL (21-232); CREATININE - SERUM 1.1 mg/dL (0.6-1.3); GLUCOSE 99 mg/dL (74-106); POTASSIUM - SERUM 3.7 mmol/L (3.5-5.1); PROTEIN - SERUM 7.1 g/dL (6.4-8.2); SODIUM 138 mmol/L (136-145); UREA NITROGEN 12 mg/dL (7-18); eGFR NON AFRICAN AMERICAN 73 mL/min (90-120)
[2020-03-11 04:09] LABS: CARBON DIOXIDE 13.5 mmol/L (21.0-32.0); TROPONIN-I < 0.017 ng/mL (0.000-0.060)
--- NOTE | 2020-03-11 05:02 | NUR ---
paged dr yu at the time that patient monitor showed asystole. assessed patient and patient was seizing. called dr rasmussen to come intubate. dr yu ok with calling dr rasmussen.
--- NOTE | 2020-03-11 06:10 | NUR ---
Dr. Lim came by and removed ahsan
--- NOTE | 2020-03-11 06:11 | NUR ---
love inserted, 350ML OF YELLOW LIQUID RETURNED
[2020-03-11 10:32] LABS: CKMB 0.3 U/L (0.0-3.6); CREATINE KINASE 120 UL (21-232)
[2020-03-11 10:36] LABS: TROPONIN-I < 0.017 ng/mL (0.000-0.060)
--- NOTE | 2020-03-11 10:57 | NUR ---
Nutrition follow-up: Pt now intubated, sedated 2/2 seizure NPO Wt: 119# Labs reviewed PO intake before seizure was 100% most meals Recommend starting Pulmoc[facility] @ 20 ml/hr with increase to goal rate of 35 ml/hr if pt remains intubated. RDN following.
--- NOTE | 2020-03-11 14:25 | NUR ---
0700 REPORT RECEIVED ASSESSMENT COMPLETE AGITATED AND THRASHING AROUND IN BED TRYING TO PPULL ETT OUT TIGHTENED BANDAR SOFT WRIST RESTRAINTS PULLED PT UP IM BED AND REPOSITIONED ON RIGHT SIDE
--- NOTE | 2020-03-11 18:21 | NUR ---
0830 ATIVAN 2MG GIVEN IV FOR AGITATION
--- NOTE | 2020-03-11 18:22 | NUR ---
1115 STARTED FENTANYL INFUSION
--- NOTE | 2020-03-11 18:22 | NUR ---
1130 ATIVAN 2MG IV GIVEN FOR AGITATION MANAGED TO PULL AT EET AND DISCONNECT FENTANYL INFUSING AT 25MCG/HR
--- NOTE | 2020-03-11 18:23 | NUR ---
1300 FENTANYL TITRATED UP TO 100 MCG/ HOUR OVER THE LAST HOUR DR WILKERSON STATED HE WANTS TO KEEP PATIENT SEDATED
--- NOTE | 2020-03-11 18:24 | NUR ---
1500 RESTING QUIETLY WITH EYES CLOSED REPOSITIONED IN BED AND PULLED HIM UPTO TOP OF BED RESTRAINTS RRELEASED ROM PERFORMED AND PLACED BACK IN RESTRAINTS
--- NOTE | 2020-03-11 18:26 | NUR ---
1700 QUIET AT THIS TIME
--- NOTE | 2020-03-11 19:00 | NUR ---
1900 BEDSIDE REPORT GIVEN
--- NOTE | 2020-03-11 19:44 | NUR ---
1899 REPORT RECEIVED, pT. RESTING WITH EYES CLOSED
--- NOTE | 2020-03-11 21:02 | NUR ---
PT RESTING WITH EYES CLOSED. RESPONDS TO VERBAL STIMULI. wILL CONTINUE TO MONITOR
--- NOTE | 2020-03-11 23:06 | NUR ---
pt resting in bed quietly. no changes at this time
[2020-03-12] VITALS (24 sets, daily range): BP systolic 78–132; BP diastolic 51–76
--- NOTE | 2020-03-12 02:25 | NUR ---
0100 Pt HR low 50s, decreased sedation and will continue to monitor
--- NOTE | 2020-03-12 03:07 | NUR ---
PT. RESTING QUIETLY AT THIS TIME.
--- NOTE | 2020-03-12 05:10 | NUR ---
no changes at this time, resting quietly
[2020-03-12 07:41] LABS: BASOPHILS 0 % (0-2); EOSINOPHILS 0 % (0-7); HEMATOCRIT 36.9 % (42.0-54.0); HEMOGLOBIN 12.9 g/dL (13.5-17.5); IMMATURE GRANULOCYTES 0.3 % (0-5); LYMPHOCYTES 6.7 % (15-50); MCH 35.5 pg (26.0-34.0); MEAN PLATELET VOLUME 9.7 fL (7.4-10.4); MONOCYTES 9.9 % (2-11); NEUTROPHILS 83.1 % (40-80); PLATELET COUNT 159 10x3/uL (130-400); RBC 3.63 10x6/uL (4.20-6.10); RDW 15.2 % (11.5-14.5); WBC 6.6 10x3/uL (4.8-10.8)
[2020-03-12 07:42] LABS: MCV 101.7 fL (80.0-100.0)
[2020-03-12 07:55] LABS: ALBUMIN 3.6 g/dL (3.4-5.0); ALKALINE PHOSPHATASE 61 U/L (30-120); ALT (SGPT) 49 U/L (10-68); BILIRUBIN - TOTAL 1.02 mg/dL (0.2-1.3); CALC OSMOLALITY 275 mosm/kg (275-300); CALCIUM 8.9 mg/dL (8.5-10.1); CHLORIDE - SERUM 102 mmol/L (98-107); CREATININE - SERUM 0.9 mg/dL (0.6-1.3); GLUCOSE 124 mg/dL (74-106); POTASSIUM - SERUM 3.4 mmol/L (3.5-5.1); PROTEIN - SERUM 7.7 g/dL (6.4-8.2); SODIUM 138 mmol/L (136-145); UREA NITROGEN 11 mg/dL (7-18); eGFR NON AFRICAN AMERICAN > 90 mL/min (90-120)
[2020-03-12 07:57] LABS: CARBON DIOXIDE 26.9 mmol/L (21.0-32.0)
--- NOTE | 2020-03-12 10:52 | NUR ---
0700 REPORT RECEIVED FROM NIGHT TANKAGE GRINDER COMPLETE CHG BATH COMPLETE DNR STATUS NOTED ON CHART
--- NOTE | 2020-03-12 10:54 | NUR ---
0900 PT MOVING ALL OVER THE BED RELEASLED RESTRAINTS REPOSITIONED PT IN BED AND REAPPLIED BANDAR SOFT WRIST RESTRAINTS STARTED REPLACING POTASIUM PER ELECTROLYTE PROTOCOL
--- NOTE | 2020-03-12 15:54 | NUR ---
1100 DR EVE MCGUIRE NEW O;RDER FOR TRANSFER TO ANOTHER CENTER WITH NEUROLOGIST
--- NOTE | 2020-03-12 15:55 | NUR ---
1300 REPOSITIONED TO RIGHT SIDE ORAL CARE PROVIDED
--- NOTE | 2020-03-12 16:00 | NUR ---
1525 NOTIFIED TRANSFER CENTER FOR POSSIBLE TRANSFER TO TO [facility] THAT HAS A NEUROLOGIST ON STAFF RAPID COVID TEST ORDERED FOR PLACEMENT
--- NOTE | 2020-03-12 19:09 | NUR ---
RECIVED REPRT AT BEDSIDE. PT INTUBATED/SEDATED AND IS RESTING/ OPENS EYES SPONTANOUSLY. HIS VSS. HR IS 46, AND HAS BEEN SINUS JEIMY. DOCTORS ARE AWARE. HE HAS FENTYLE AND DIPRIVAN DRIPS, SEE IV FLOWSHEET. HOWEVER HE HAS PROVEN TO NOT BE ABLE TO BE PROPERLY SEDATED WHERE HE IS NOT AGITATED OR TRYING TO PULL OUT ETT AND HOLD BP ABD HR AT [employer]. HE HAS PRN ATIVAN IF NEEDED FOR AGGITATION/ANXIETY. FULL ASSESSMENT PERFOMRED AND WILL DOC IN FLOWSHEET. RESTRAINTS OBSERVED, LAW OBSERVED HANGING BELOW BLADDER AND DRAINING. SCD'S ARE O BILAT. BED IS LOW,SIDE RAISLX2,CALL LIGHT WITHIN REACH. WILL CONITNUE TO MONITOR.
--- NOTE | 2020-03-12 19:16 | NUR ---
[address] TO AND BACK FROM CT OF THE HEAD WITH PORTABLE VENT
--- NOTE | 2020-03-12 20:07 | NUR ---
PT IS AGGITATED, PULLING AT RESTRAINTS AND CHEWING ON ETT. TALKED WITH RT TO PUT IN BITE BLOCK. HIS VSS. WILL ADMINISTER ATIVAN PER ORDER PRN FOR ANXIETY/AGGREVATION. I TRY TO RE-ASSURE HIM THAT HE IS OK AND THAT HE IS IN THE HOSPITAL BEING TAKEN CARE OF. RESTRAINTS ARE OBSERVED. BED IS LOW,SIDE RAISLX2,CALL LIGHT WTIHIN REACH. WILL CONINTUE TO MONITOR
--- NOTE | 2020-03-12 20:51 | NUR ---
pt seems to be more calm at this time. his VSS. he is calm with eye closed and not fighting vent or restraints. bed is low,side raislx2,call light within reach. will conitnue to monitor
--- NOTE | 2020-03-12 22:10 | NUR ---
CALLED [facility] ICU AND TALKED WITH ANGELINA PITT RN THE RECIVING RN. GAVE REPORT OF PT WHO IS TRANSFERING THERE FOR NEUROLOGY/NEUROSURGICAL EVALUATION. DR. SCOTT IS THE RECIVING PHYSIICAN.
--- NOTE | 2020-03-12 23:00 | NUR ---
PT IS RESTING IN BED WITH EYES CLOSED. VSS. HE AWAKENS VERY EASILY WHEN STIMULATED OR CALLED TO. RE-ASSESSMENT DONE AND WILL DOC IN FLOWSHEET. ORAL CARE PROVIDED. TURNED FOR COMFORT. BED IS LOW,SIDE RAISLX2,CALL LIGHT WITHIN REACH. WILL CONINTUE TO MONITOR
--- NOTE | 2020-03-12 23:45 | NUR ---
EMS IS HERE AT THIS TIME, WHILE TRANSFERING PT TO EMS COT, PT WAS VERY ANGREVATED AND ANXIOUS WITH HIS EYE BIG AND POINTING AND PULLING AT THINGS. I TRIED TO RE-ORIENT HIM OF THE SITUATION AND THAT HE WAS GOING TO BE TRANSFERED TO ANOTHER HOSPITAL. WILL SCAN AND ADMINISTER ATIVAN IV PRN FOR AGITATION TO HELP CALM PT. EMS HOOKED PT UP TO PORTABLE VENT AND TOOK THE REMAINDER OF HIS DIPRIVAN PUMP AND FENTYLE PUMP. I WILL DOC MY TOTALS IN MY LABELLING MACHINE OPERATOR PUMP FLOWSHEET AND I/O'S. HE IS AWAKE, VSS. HIS BELONGINGS WERE SENT WITH HIM. EMS LEFT OUT THE UNIT AT 2359, PT WAS IN STABLE CONDITION WITH NO APPEARENT DISTRESS.
--- NOTE | 2020-03-13 02:55 | NUR ---
[employer] JUST RETUREND FENTLYE PUMP WITH SYRINGE. WAS NOT ABLE TO WASTE IN THE PYXIS, BUT VERIFIED WITH OTHER RN ANTONIO OF 7ML LEFT IN SYRINGE. WASTED 7ML IN ALL PURPOSE WASAlberto MORA AT THIS TIME.
--- NOTE | 2020-03-13 02:55 | NUR ---
WITNESSED 7 ML OF FENTANYL WASTE WITH AJ BURR RN
--- NOTE | 2020-03-13 09:36 | MORECARE ---
CASE MANAGEMENT DISCHARGE SUMMARY PATIENT: KAM JANG UNIT: [id number] ADM DATE: 03/01/20 AGE: 59 : 62 SEX: M ROOM/BED: D.2309 AUTHOR: AN CASIANO PHYSICIAN: REFERRING PHYSICIAN: ROB CALDWELL MD DATE OF SERVICE: 03/13/20 Discharge Plan Patient Name: KAM JANG Facility: [facility]:Ely : 1960 Planned Disposition: Inpatient Rehab Anticipated Discharge Date: Discharge Date: 03/12/2020 Expected LOS: Initial Reviewer: [id number] Initial Review Date: 03/01/2020 Generated: 03/13/20 10:35 am DCP- Discharge Planning Updated by [email or web address]: Tammie Rucker on 03/08/20 11:[address] PATIENT WAS ADMITTED AFTER FALLING FROM A TREE. I USED THE LANGUAGE LINE TO HELP ME WITH MY ASSESSMENT. PATIENT STATED THAT HE LIVES IN A SMALL HOUSE [place] WITH HIS , DAUGHTER,BROTHERS AND DAUGHTER IN LAW. HIS NEPHEW IS YOSEF AND HE WANTS US TO GET INTOUCH WITH HIM, BUT NO ONE KNOWS HIS NUMBER AND THE PATIENT COULD NOT TELL ME. HE TALKED ABOUT BEING AT ANOTHER HOSPITAL? I AM UNSURE IF THIS IS TRUE. I HAVE SENT A REFERRAL TO [facility]. I WILL ATTEMPT TO GET A HOLD OF YOSEF. CM RICK CONTINUE TO FOLLOW ADN ASSIST THE COIL CUTTER THAT I SPOKE WITH WAS ALFREDITO CASTILLOPILisa - Discharge Planning Initial Assessment Updated by [email or web address]: Tammie Rucker on 03/08/20 12:38 pm * ADLs Independent * List name and contact numbers for known caregivers / representatives who currently or will assist patient after discharge: YOSEF ( NEPHEW) Last DP export: 03/08/20 11:46 a Patient Name: KAM JANG Page [phone] at 0936 All edits/amendments must be made on the electronic document DICTATION DATE: 03/13/20934 BEHAVIORAL HEALTH ASSOCIATE: HERBERT 03/13/2035 RPT#: [id number] DC DATE:03/12/20 STATUS: DIS IN [facility] [address] [place] [address] END OF REPORT
== END 2020-03-12 23:59 | disposition short-term general hospital (02) | DRG 25 ==
LOC: D.ER 17:05 → D.MS 19:09 → D.ICU 19:09 → EDBD 19:09 → D.ICU 03-02 12:00 → D.MS 03-04 19:51 → D.ICU 03-10 17:18
PROVIDERS: Family Medicine; Internal Medicine Hematology & Oncology; Internal Medicine Pulmonary Disease; Neurological Surgery; ADMIT Emergency Medicine; ATTEND Emergency Medicine
PROC: 00C40ZZ Extirpation of Matter from Intracranial Subdural Space, Open Approach (ICD-10-PCS; principal; 2020-03-03 07:30)
DX: S06.5X9A Traumatic subdural hemorrhage with loss of consciousness of unspecified duration, initial encounter (principal); G93.6 Cerebral edema; S22.059A Unspecified fracture of T5-T6 vertebra, initial encounter for closed fracture; D61.818 Other pancytopenia; W14.XXXA Fall from tree, initial encounter; D64.9 Anemia, unspecified; E87.6 Hypokalemia; E83.42 Hypomagnesemia; Z72.89 Other problems related to lifestyle